=== PATIENT | male | born 1950 | race Asian ===

== ENCOUNTER 2017-01-01 12:26 | Emergency (ER) | payer MEDICARE ==
[~2017-01-01] VITALS: Ht 170.2 cm; Wt 68.1 kg
[2017-01-01] MEDS ORDERED: ASPI81 PO (12:35)
[2017-01-01] MEDS ORDERED: HYDR25TA PO (12:35)
[2017-01-01] MEDS ORDERED: LOSA25TA21 PO (12:35)
[2017-01-01] MEDS ORDERED: DIABETIC MED PO (12:35)
[2017-01-01] MEDS ORDERED: ATOR20TA86 PO (12:35)
[2017-01-01 12:42] LABS: GLUCOSE,POINT OF CARE 112 MG/DL (70-110)
[2017-01-01] MEDS ORDERED: LIDOCAINE HCL BUFFERED 1% 20 ML VIAL INJ ONE (13:30)
[2017-01-01] MEDS ORDERED: PERTUSS(ACELL),DIPH,TET VAC/PF 0.5 ML VIAL IM ONE (13:30)
[2017-01-01 14:59] VITALS: BP 147/87
== END 2017-01-01 15:04 | disposition home or self-care (01) ==
LOC: EMS 12:27
DX: S61.212A Laceration without foreign body of right middle finger without damage to nail, initial encounter (principal); E11.9 Type 2 diabetes mellitus without complications; I10 Essential (primary) hypertension; E78.00 Pure hypercholesterolemia, unspecified; W25.XXXA Contact with sharp glass, initial encounter; Y93.89 Activity, other specified; Y92.89 Other specified places as the place of occurrence of the external cause; Y99.8 Other external cause status
CPT/HCPCS: 12001; 82962; 90471; 90715; 99283; J3490

== ENCOUNTER 2017-01-08 17:38 | Emergency (ER) | payer MEDICARE ==
[~2017-01-08] VITALS: Ht 170.2 cm; Wt 69.5 kg
[~2017-01-08 17:38] MED LIST: ASPI81 PO; ATOR20TA86 PO; DIABETIC MED PO; HYDR25TA PO; LOSA25TA21 PO
[2017-01-08] MEDS ORDERED: LOSA-30 PO (18:04)
[2017-01-08] MEDS ORDERED: SITA1TAB2 PO (18:04)
[2017-01-08] MEDS ORDERED: LIDOCAINE HCL/PF 1% 2 ML VIAL IM ONE (19:45)
[2017-01-08] MEDS ORDERED: CefTRIAXone SODIUM 1 GM/VIAL IM ONE (19:45)
[2017-01-08 20:10] VITALS: BP 115/85
== END 2017-01-08 20:24 | disposition home or self-care (01) ==
LOC: EMS 17:40
DX: L03.011 Cellulitis of right finger (principal); S61.212D Laceration without foreign body of right middle finger without damage to nail, subsequent encounter; E11.9 Type 2 diabetes mellitus without complications; I10 Essential (primary) hypertension; E78.00 Pure hypercholesterolemia, unspecified; X58.XXXA Exposure to other specified factors, initial encounter; Y93.89 Activity, other specified; Y92.89 Other specified places as the place of occurrence of the external cause; Y99.8 Other external cause status
CPT/HCPCS: 96372; 99283; J0696; J3490